=== PATIENT | female | born 1990 | race Caucasian/White ===

== ENCOUNTER → 2017-08-26 | Outpatient (CLI) | payer OTHER ==
[~2017-08-26] MED LIST: FERR325T51 PO; MTR600X PO; OXYC5TAB PO; PRENTAB26 PO
== END | disposition home or self-care (01) ==
LOC: C.PAPS 10:16
PROVIDERS: ATTEND Obstetrics & Gynecology
DX: Z12.4 Encounter for screening for malignant neoplasm of cervix (principal)

== ENCOUNTER → 2017-08-26 | Outpatient (CLI) | payer OTHER ==
[2017-08-26 18:42] LABS: URINE APPEARANCE CLEAR (CLEAR); URINE BILIRUBIN NEG (NEG); URINE COLOR YELLOW; URINE NITRITE NEG (NEG); URINE PH 6.5 (4.5-7.5); URINE SPECIFIC GRAVITY 1.008 (1.000-1.030); UROBILINOGEN NEG (NEG)
[2017-08-26 18:46] LABS: MANUAL MICROSCOPIC REQUIRED? NO; REVIEW REQ? NO
== END | disposition home or self-care (01) ==
LOC: C.LABSPEC 17:25
PROVIDERS: ATTEND Obstetrics & Gynecology
DX: N39.0 Urinary tract infection, site not specified (principal)

== ENCOUNTER → 2017-12-25 | Outpatient (CLI) | payer OTHER ==
--- NOTE | 2017-12-25 17:55 | DIAGNOSTIC IMAGING REPORT ---
CHEST 2 VIEWS ROUTINE CLINICAL HISTORY: 27 years-old Female presenting with R05, COUGH, flu positive. TECHNIQUE: PA and lateral views of the chest were obtained. COMPARISON: None. FINDINGS: Cardiomediastinal silhouette normal. Lungs and pleural spaces clear. Osseous structures normal. Upper abdomen normal. IMPRESSION: 1. No acute cardiopulmonary disease. Electronically signed by: Js Gallegos M.D. 12/25/2017 5:54 PM Dictated Date/Time: 12/25/2017 5:53 PM
== END | disposition home or self-care (01) ==
LOC: C.RAD 17:36
PROVIDERS: ATTEND Family Medicine
DX: R05 Cough (principal)

== ENCOUNTER → 2018-03-05 | Outpatient (CLI) | payer OTHER ==
--- NOTE | 2018-03-05 17:26 | DIAGNOSTIC IMAGING REPORT ---
RIGHT THUMB 3 VIEWS HISTORY: PAIN IN RIGHT FINGER COMPARISON: None. FINDINGS: There is no fracture or dislocation. Soft tissues are unremarkable. No radiopaque foreign bodies. IMPRESSION: No fractures. Electronically signed by: Hay Mackenzie M.D. 03/05/2018 5:25 PM Dictated Date/Time: 03/05/2018 5:24 PM
== END | disposition home or self-care (01) ==
LOC: C.RAD1850 16:20
PROVIDERS: ATTEND Nurse Practitioner Family
DX: M79.644 Pain in right finger(s) (principal)

== ENCOUNTER 2020-01-27 07:40 | Inpatient (IN) ==
[2020-01-27] MEDS ORDERED: OXYTOCIN 30 UNITS/500 ML BAG IV PRN ×3 (08:01→21:07)
[2020-01-27] MEDS: LACTATED RINGER'S 1,000 ML IV PRN ×2 (08:29→13:39)
[2020-01-27 08:33] LABS: Hematocrit (blood only) 34.1 % (37-47); Hemoglobin 11.4 g/dL (12.0-16.0); Mean Corpuscular Hemoglobin 27.9 pg (25-34); Mean Corpuscular Volume 83.4 fL (80-100); Mean Platelet Volume 10.9 fL (7.4-10.4); Platelet Count 108 K/uL (130-400); RDW Coefficient of Variation 14.6 % (11.5-14.5); RDW Standard Deviation 44.9 fL (36.4-46.3); Red Blood Count 4.09 M/uL (4.2-5.4); White Blood Count 8.54 K/uL (4.8-10.8)
[2020-01-27 08:35] LABS: Mean Corpuscular Hgb Conc 33.4 g/dL (32-36)
[2020-01-27] MEDS ORDERED: PENICILLIN G POTASSIUM 6 MU in DEXTROSE 5% 250 ML IV ONE (09:45)
--- NOTE | 2020-01-27 12:36 | History & Physical Report ---
Date of Service January 27, 2020 Assessment & Plan (1) Encounter for elective induction of labor: IUP at 39 weeks with then C/S patient strongly desires PCN G and pitocin induction begun will AROM when possible anticipate vaginal . History of Present Illness Primary Care Provider: NO PCP Patient is a 29 yo white female EDC 02/02/20 who presents at 39 weeks for IOL. Her has been complicated by a prior C/S for partial placenta previa & transverse lie. she had a vaginal with her first baby & would like to successfully . cervix is favorable and she also prefers a female provider. GBS is positive. Blood type A positive. has otherwise been uncomplicated. Allergies Allergy/AdvReac Type Severity Reaction Status Date / Time No Known Allergies Allergy Verified 01/26/20 10:29 Home Medications Home Medications Medication Instructions Recorded Confirmed Type prenat.vits,emily,[id number] 1 tab PO DAILY 06/17/19 01/27/20 History Patient History Medical History Bilateral hydronephrosis Dizziness Insertion of Nexplanon (Resolved) Stomach ulcer Urinary tract infection Surgical History History of section Previous delivery affecting , antepartum Family History Mother No problems noted. Unknown Diabetes Hypertension Other Breast cancer Social History Preferred Language: Nigerien Communication Ability: Effective Timekeeper Required: No Beliefs That Will Affect Care: Episcopalian Episcopalian Beliefs: No pork and Cultural marital status: Current Living Situation: Spouse and Family Current Living Situation Comment: Tom Humphrey (31) [phone] current occupational status: unemployed current occupation: homemaker Other Information That Helps Us Care for You: No other: no pets Feels Safe at Home: Yes Safety Concerns: Feels Safe At This Time Smoking Status: Never smoker Do You Dip or Chew Tobacco: No ; Second Hand Exposure: No ; Tobacco Cessation Education Requested by Patient: No Hx Alcohol Use: No Hx Substance Use: No Childhood Exposure to Second-Hand Smoke: No Physical Exam Constitutional: WD/WN, vitals as above Respiratory: normal respiratory effort, lungs clear to auscultation Cardiovascular: RRR, no murmur, no edema Gastrointestinal (Abdomen): normal bowel sounds, soft, nontender, no hepatosplenomegaly Psychiatric: A+Ox3, euthymic affect Genitourinary: OB Exam Abdomen: + vertex (by ultrasoun) and + estimated weight (6-7 pounds) Manual OB Exam: + cervical dilation 3 cm, + cervical effacement 70% and + station high OB Exam Monitor Tracing: + external FHT monitor used, + external uterine monitor used, + category I and + normal FHT variability there was one prolonged decel prior to the start of pitocin with recovery to baseline and then Category 1. Results & Data Vital Signs (Past 12 Hours) Vital Signs Temp Pulse Resp BP 01/27/20 12:08 98.4 F 77 20 114/69 01/27/20 10:54 109 H 18 101/69 01/27/20 10:40 100 H 20 108/57 L 01/27/20 10:38 93 H 16 86/49 L 01/27/20 10:23 96 H 20 112/58 L 01/27/20 10:09 93 H 20 118/65 01/27/20 09:54 112 H 20 117/68 01/27/20 09:39 108 H 20 124/68 01/27/20 08:44 98.2 F 98 H 18 119/76 01/27/20 08:32 98 H 119/76 01/27/20 07:45 98.1 F 123 H 20 115/79 Coding Level of Care Code None Diagnoses Encounter for elective induction of labor Z34.90
[2020-01-27] MEDS: PENICILLIN G POTASSIUM 3 MU in DEXTROSE 5% 100 ML IV PRN ×2 (13:40→17:24)
[2020-01-27] MEDS ORDERED: ePHEDrine sulfate 50 MG/ML AMP ONE (15:56)
[2020-01-27] MEDS ORDERED: fentaNYL citrate 100 MCG/2 ML VIAL ONE (15:57)
[2020-01-27] MEDS ORDERED: fentaNYL 2MCG/ML ROPIV 1.25MG/ML 100 ML BAG EPI ONE (15:57)
[2020-01-27] MEDS ORDERED: BUPIVACAINE 0.25% 30 ML VIAL ONE (15:57)
--- NOTE | 2020-01-27 17:43 | Anesthesiology Consultation ---
Date of Service January 27, 2020 Assessment & Plan Chart Review Chart Review: Acceptable Risk for Labor Epidural Consults Requested none History Height/Weight Height: 5 ft 2.99 in Weight: 66.933 kg Allergies Allergy/AdvReac Type Severity Reaction Status Date / Time No Known Allergies Allergy Verified 01/26/20 10:29 Medications Home Medications Medication Instructions Recorded Confirmed Last Taken prenat.vits,emily,[id number] 1 tab PO DAILY 06/17/19 01/27/20 01/26/20 18:30 Active Medications Generic Name Dose Route Start Last Admin Trade Name Freq PRN Reason Stop Dose Admin Lactated Ringer's 1,000 mls @ 125 mls/hr 01/27/20 08:01 01/27/20 16:55 Lr IV 01/29/20 08:00 Infused .Q8H PRN Infusion L&D Protocol Protocol Oxytocin 30 units in 500 mls @ 5 mls/hr 01/27/20 08:01 01/27/20 14:40 Pitocin IV 01/29/20 08:00 0.3 units/hr .Q24H PRN 5 mls/hr Labor Induction/Augmentation Titration Protocol 0.3 UNITS/HR Penicillin G Potassium 3 mu/ 106 mls @ 100 mls/hr 01/27/20 09:27 01/27/20 17:24 Dextrose IV 02/06/20 09:26 100 mls/hr Q4H PRN Administration Give until delivery Past Medical History Medical History Bilateral hydronephrosis Dizziness Insertion of Nexplanon (Resolved) Stomach ulcer Urinary tract infection Past Family History Family History Mother No problems noted. Unknown Diabetes Hypertension Other Breast cancer Past Surgical History Surgical History History of section Previous delivery affecting , antepartum Social History Smoking Status: Never smoker Do You Dip or Chew Tobacco: No Hx Alcohol Use: No Hx Substance Use: No Physical Exam Vital Signs Last Vital Signs Temp 36.9 C 01/27/20 16:41 Pulse 100 H 01/27/20 17:41 Resp 20 01/27/20 16:41 BP 103/56 L 01/27/20 17:41 Pulse Ox 99 04/08/20 17:37 Testing Laboratory Results 01/27/20 08:16
[2020-01-27] MEDS ORDERED: DiphenhydrAMINE HCL 50 MG/ML VIAL IV PRN (17:46)
[2020-01-27] MEDS ORDERED: ePHEDrine sulfate 50 MG/ML AMP IV PRN (17:46)
[2020-01-27] MEDS ORDERED: NALOXONE HCL 1 MG in SODIUM CHLORIDE 0.9% 1000ML 1,000 ML IV PRN (17:46)
[2020-01-27] MEDS ORDERED: fentaNYL 2MCG/ML ROPIV 1.25MG/ML 100 ML BAG EPI PRN (17:46)
[2020-01-27] MEDS ORDERED: NALBUPHINE HCL INJ 10 MG/ML AMP IV PRN (17:46)
[2020-01-27] MEDS ORDERED: ONDANSETRON INJ 2 MG/ML 2 ML VIAL IV PRN (17:46)
[2020-01-27] MEDS ORDERED: NALOXONE HCL 0.4 MG/1 ML VIAL/CARP IV PRN (17:46)
[2020-01-27] MEDS ORDERED: OXYCODONE/ACETAMINOPHEN 5mg/325mg TAB PO PRN (21:07)
[2020-01-27] MEDS ORDERED: bisacodyL 10 MG SUPP PR PRN (21:07)
[2020-01-27] MEDS ORDERED: DIPHTHERIA/TETANUS/PERTUSSIS 0.5 ML SYR/VIAL IM ONE (21:07)
[2020-01-27] MEDS ORDERED: HYDROCORTISONE ACETATE 25 MG SUPP PR PRN (21:07)
[2020-01-27] MEDS ORDERED: SUPERCREAM 0.870% 15 GM JAR EXT PRN (21:07)
[2020-01-27] MEDS ORDERED: BENZOCAINE 20% AER SPR 82.5 GM CAN EXT PRN (21:07)
[2020-01-27] MEDS ORDERED: ACETAMINOPHEN 325 MG TAB PO PRN (21:07)
--- NOTE | 2020-01-27 21:38 | Anesthesia Procedure Note ---
Date of Service January 27, 2020 Anesthesia Post Epidural Note Vital Signs Vital Signs: Temp Pulse Resp BP Pulse Ox 37 C 94 H 18 109/68 100 01/27/20 19:10 01/27/20 21:33 01/27/20 19:10 01/27/20 21:33 01/27/20 20:52 Pain Intensity Abdomen: Pain Intensity: 5 Notes Mental Status: alert / awake / arousable Nausea / Vomiting: adequately controlled Pain: adequately controlled Airway Patency, RR, SpO2: stable & adequate BP & HR: stable & adequate Hydration State: stable & adequate Neuraxial Anesthesia: was administered and sensory block is resolving Anesthetic Complications: no major complications apparent Epidural: Removed without complications and With tip intact
[2020-01-27] MEDS: IBUPROFEN 600 MG TAB PO PRN (23:12)
--- NOTE | 2020-01-28 01:55 | Delivery Summary ---
DATE OF OPERATION: 01/27/2020 The patient is a 29-year-old 3, para 2-0-0-2, white female, EDC of 02/02/2020 who presents at 39+ weeks for induction of labor. Her was complicated by a prior section for partial placenta previa and transverse lie. She did have a vaginal with her first without complications. She is a good candidate for a and she desires this strongly as well as requesting a female provider for her delivery. GBS is positive. She presented to labor and delivery and IV penicillin was begun for GBS prophylaxis. Pitocin was also begun for induction of labor. She progressed to 5 cm dilated, at which point after her second dose of penicillin was infused, her membranes were ruptured for clear fluid. She then requested epidural analgesia, which was effective. She progressed to full dilation and pushed effectively over intact perineum for delivery of a viable male . There was a loose nuchal cord which was reduced after delivery of the head. The rest of the infant delivered without difficulty and was placed on the mother's abdomen for further attention and drying. There was spontaneous crying and the infant was moving all 4 limbs. The cord was clamped and cut after approximately 1 minute of . The placenta was expressed intact with a 3-vessel cord. A first-degree perineal laceration was repaired with 3-0 chromic in the usual fashion. A first-degree left labial laceration was not bleeding and therefore not repaired. Estimated blood loss was 100 mL bleeding was controlled with dilute Pitocin. Mother and infant were doing well after delivery. I attest to the content of the Intraoperative Record and any orders documented therein. Any exception s are noted below.
[2020-01-28 06:33] LABS: Hemoglobin 9.9 g/dL (12.0-16.0); Mean Corpuscular Hemoglobin 27.9 pg (25-34); Mean Corpuscular Volume 84.5 fL (80-100); Mean Platelet Volume 11.4 fL (7.4-10.4); Platelet Count 118 K/uL (130-400); RDW Coefficient of Variation 14.9 % (11.5-14.5); RDW Standard Deviation 46.5 fL (36.4-46.3); Red Blood Count 3.55 M/uL (4.2-5.4); White Blood Count 11.56 K/uL (4.8-10.8)
[2020-01-28] MEDS: IBUPROFEN 600 MG TAB PO PRN ×3 (07:43→20:21)
[2020-01-28] MEDS: DOCUSATE SODIUM 100 MG CAP PO SCH ×2 (07:44→20:22)
[2020-01-28] MEDS: PRENATAL VITAMIN 1 TAB PO SCH (07:44)
--- NOTE | 2020-01-28 07:56 | Obstetrical Progress Note ---
Date of Service January 28, 2020 Assessment & Plan (1) Encounter for care and examination after delivery: successful - mild pubic bone separation satisfactory course offered walker for ambulation but feels she doesn't need it continue current care plan Day #:: 1 Subjective Ambulation: ambulating normally Voiding: no voiding problems Passing Gas:: Yes Diet Tolerance:: regular diet Lochia:: Moderate Feeding Type:: breast feeding having some pubic bone pain when walking. Physical Exam Constitutional WD/WN, vitals as above Psychiatric A+Ox3, euthymic affect Genitourinary OB Exam Abdomen: + fundal height Fundus: + firm and + relation to umbilicus (at U) Results & Data Vital Signs (Past 12 Hours) Vital Signs Temp Pulse Pulse Resp BP BP Pulse Ox 01/28/20 04:30 98.2 F 92 H 18 101/62 01/27/20 23:15 99.0 F 93 H 18 112/70 01/27/20 22:53 94 H 112/59 L 01/27/20 22:50 18 01/27/20 22:23 93 H 116/60 01/27/20 22:20 16 01/27/20 21:53 108 H 105/59 L 01/27/20 21:50 16 01/27/20 21:43 102 H 107/60 01/27/20 21:35 18 01/27/20 21:33 94 H 109/68 01/27/20 21:23 109 H 109/57 L 01/27/20 21:20 18 01/27/20 21:13 100 H 113/60 01/27/20 21:03 99 H 111/58 L 01/27/20 21:00 18 01/27/20 20:52 111 H 100 01/27/20 20:50 98.6 F 115 H 18 113/73 01/27/20 20:47 109 H 99 01/27/20 20:42 110 H 97 01/27/20 20:37 131 H 122/76 100 01/27/20 20:32 94 H 100 01/27/20 20:30 18 01/27/20 20:27 111 H 100 01/27/20 20:22 113 H 100 01/27/20 20:20 113 H 118/67 01/27/20 20:17 105 H 100 01/27/20 20:12 140 H 100 01/27/20 20:07 115 H 100 01/27/20 20:06 109 H 112/57 L 01/27/20 20:02 86 100 01/27/20 20:00 18 01/27/20 19:57 90 100
[2020-01-28] MEDS ORDERED: bisacodyL 5 MG TABEC PO SCH (20:00)
[2020-01-29] MEDS ORDERED: SODIUM CHLORIDE 0.65% NA SOLN 45 ML (OCEAN) ONE (00:28)
[2020-01-29 06:39] LABS: Hematocrit (blood only) 29.8 % (37-47); Hemoglobin 9.8 g/dL (12.0-16.0)
--- NOTE | 2020-01-29 07:02 | Obstetrical Progress Note ---
Date of Service January 29, 2020 Assessment & Plan (1) Encounter for care and examination after delivery: stable routine care, ready for d/c home and desires such. instructions reviewed, f/u 6wk pp check. Subjective Ambulation: ambulating normally Voiding: no voiding problems Diet Tolerance:: regular diet Lochia:: Small Feeding Type:: breast feeding some pelvic bone soreness, says its been there even before delivery, moves slowly in bed. Physical Exam Constitutional WD/WN, vitals as above Respiratory normal respiratory effort, lungs clear to auscultation Cardiovascular Rate/Rhythm: regular rate and regular rhythm Gastrointestinal (Abdomen) Inspection/Auscultation: abdomen normal to inspection Percussion/Palpation: abdomen soft fundus firm 2 cm below umbilicus Musculoskeletal nt calves no edema Neurologic grossly normal Psychiatric A+Ox3, euthymic affect Results & Data Vital Signs (Past 12 Hours) Vital Signs Temp Pulse Resp BP Pulse Ox 01/28/20 23:15 98.4 F 83 18 110/72 98 01/28/20 19:10 98.1 F 94 H 16 112/69 100
[2020-01-29] MEDS: PRENATAL VITAMIN 1 TAB PO SCH (08:02)
[2020-01-29] MEDS: DOCUSATE SODIUM 100 MG CAP PO SCH (08:02)
[2020-01-29] MEDS ORDERED: ONDANSETRON 4 MG OD TAB PO STA (10:07)
[2020-01-29 10:36] LABS: Basophils # (auto) 0.03 K/uL (0-0.2); Basophils % (auto) 0.3 %; Eosinophils # (auto) 0.14 K/uL (0-0.5); Eosinophils % (auto) 1.3 %; Hematocrit (blood only) 32.5 % (37-47); Hemoglobin 10.7 g/dL (12.0-16.0); Immature Granulocytes # (auto) 0.07 K/uL (0.00-0.02); Immature Granulocytes % (auto) 0.6 %; Lymphocytes # (auto) 2.06 K/uL (1.2-3.4); Lymphocytes % (auto) 18.8 %; Mean Corpuscular Hemoglobin 28.2 pg (25-34); Mean Corpuscular Volume 85.5 fL (80-100); Mean Platelet Volume 10.6 fL (7.4-10.4); Monocytes # (auto) 0.62 K/uL (0.11-0.59); Monocytes % (auto) 5.7 %; Neutrophils # (auto) 8.04 K/uL (1.4-6.5); Neutrophils % (auto) 73.3 %; Platelet Count 148 K/uL (130-400); RDW Coefficient of Variation 15.1 % (11.5-14.5); RDW Standard Deviation 46.9 fL (36.4-46.3); White Blood Count 10.96 K/uL (4.8-10.8)
[2020-01-29 10:42] LABS: Mean Corpuscular Hgb Conc 32.9 g/dL (32-36)
[2020-01-29 10:52] LABS: Albumin Level 2.5 gm/dl (3.4-5.0); BUN Creatinine Ratio 8.1 (10-20); Calcium 8.6 mg/dl (8.5-10.1); Creatinine Clr Calc Pharmacy 146.7 ml/min; Est GFR (African American) 149.6; Est GFR (Non-African American) 129.1; Potassium 3.5 mmol/L (3.5-5.1)
[2020-01-29 10:55] LABS: Albumin Globulin Ratio 0.7 (0.9-2); Bilirubin,Total 0.3 mg/dl (0.2-1); Globulin 3.7 gm/dl (2.5-4.0); Total Protein 6.2 gm/dl (6.4-8.2)
--- NOTE | 2020-01-29 13:28 | Obstetrical Progress Note ---
Date of Service January 29, 2020 Subjective I was called to patient room after she felt dizzy after having episode of diarrhea. She is shaking, states her anxiety level is high because her friend after childbirth a few years ago. Vitals initially were tachycardic and BP elevated, but after allowing patient to calm down, vitals returned to normal. 100% spO2 on room air. Lung sounds clear, no chest pain or difficulty breathing. No bleeding, uterus firm. After a dose of zofran, she was able to eat a little bit of lunch and is feeling much better. She would like to go home. CBC and CMP are normal, and patient is comfortable with this assessment. She is instructed to call office or return to hospital if any concerns or emergencies. Results & Data Vital Signs (Past 12 Hours) Vital Signs Temp Pulse Resp BP Pulse Ox 01/29/20 13:05 36.8 C 79 18 117/83 95 01/29/20 08:00 36.8 C 79 18 117/83 95 PG Care Time/CCT Total # of Minutes Spent Total Time Spent with Patient: Total time spent is greater than 50% in coordination of care (as documented) at patient's floor/unit and/or counseling patient: Coding Level of Care Code None
--- NOTE | 2020-02-03 10:59 | Coding Query ---
CODING QUERY To promote full compliance with coding requirements relating to patient care, provider participation is requested in all cases of print producer uncertainty. Please assist us with the question(s) below: Coding Question(s): There is documentation of, "successful - mild pubic bone separation" on Progress Note 01/28/20. Please clarify below, regarding the mild pubic bone separation. ( x) mild pubic bone separation was not a significant condition and did not require treatment or monitoring ( ) mild pubic bone separation was a significant condition that did require treatment or monitoring. Please specify regarding treatment or monitoring provided: ( ) Other: Please specify Physician's Response(s): Thank you Hannah Chung Principal Diagnosis: "that condition established after study, to be chiefly responsible for occasioning the admission of the patient to the hospital for care." Co-Existing Principal Diagnosis: "when two or more diagnoses equally meet the criteria for principal diagnosis as determined by the circumstances of admission, diagnostic work up, and/or therapy provided, and the Alphabetic Index, Tabular List, or another coding guideline does not provide sequencing direction, any one of the diagnoses may be sequenced first." "When the physician has documented what appears to be a current diagnosis in the body of the record, but has not included the diagnosis in the final diagnostic statement, the physician should be asked whether the diagnosis should be added." (Source Coding [facility] 2 QTR90. p3-4) WINNIE
== END 2020-01-29 14:00 | disposition home or self-care (01) | DRG 807 ==
LOC: 4S1 07:40 → 4S2 23:10